=== PATIENT | male | born 1970 | race Caucasian/White ===

== ENCOUNTER 2018-07-21 11:53 | Day surgery (SDC) | payer OTHER ==
[~2018-07-21] VITALS: Ht 175.3 cm; Wt 93.1 kg
[2018-07-21 12:25] VITALS: BP 138/82; PULSE 66; TEMP 98.1
[2018-07-21] MEDS ORDERED: MOTRIN 800800 MG/TAB PO (12:31)
[2018-07-21 13:45] VITALS: BP 124/92; PULSE 81; TEMP 97.4
[2018-07-21 14:00] VITALS: BP 127/88; PULSE 88
[2018-07-21 14:15] VITALS: BP 119/86; PULSE 72
== END 2018-07-21 14:30 | disposition home or self-care (01) ==
LOC: SDCO 11:53
DX: K62.1 Rectal polyp (principal); K64.0 First degree hemorrhoids; K92.1 Melena; Z83.71 Family history of colonic polyps; Z83.79 Family history of other diseases of the digestive system; I48.91 Unspecified atrial fibrillation; F17.210 Nicotine dependence, cigarettes, uncomplicated
CPT/HCPCS: OP; J2250; J3010; J7030